=== PATIENT | male | born 1930 | race Caucasian/White ===

== ENCOUNTER → 2016-10-18 | Outpatient (CLI) | payer BC | LOC: CIMAGING 10:19 | PROVIDERS: ATTEND Internal Medicine | DX: M17.11 Unilateral primary osteoarthritis, right knee (principal) | CPT/HCPCS: 73564-PO ==

== ENCOUNTER 2017-04-05 10:04 | Emergency (ER) | payer OTHER ==
--- NOTE | 2017-04-05 10:51 | EDPHY ---
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 Patient had improved through rehab to the point that he was ambulating with a cane. He was speaking clearly and was able to perform meth medical consultations. He recently moved to [place] from the [place]. He is currently living with his son. Family says that they came home the morning of March 25 and found him in a decline state of health. He was sitting at the table with his underwear around his ankles eating breakfast. He was confused. He was weak and was unable to ambulate with his cane. Since that time he has had a little bit of improvement but continues to be quite weak. He is ambulating with a walker but has had 3 falls. The last 1 was 2 days ago where he fell and hit the side of the bath tub on his right posterior ribs. He has also had emotional lability and quite tearful. He is also having some urinary incontinence at night which is unusual for him. He has been complaining of some rib pain and pain with inspiration. They took him in to see Dr. Dean sent him here for further evaluation. ROS: 10 point Review of Systems is negative except as noted in the HPI. PMH: CVA, questionable atrial fibrillation, BPH PSH: Left hip replacement August 2015, hernia repair, cataract surgery Medications: Digoxin, Flomax, aspirin Social History: No smoking, no alcohol, no recreational drug use Family History: non-contributory Physical Exam: Gen: Awake, Alert, oriented x1, no distress, normotensive, normal heart rate, oxygen satting 95% on room air HEENT: Nose: no rhinorrhea Eyes: PERRLA, EOMI, he has got a mild right eyelid droop which is chronic Mouth: Moist mucosa Neck: Supple, no JVD Chest: He is contusion on his right lower posterior ribs with tenderness, decreased breath sounds on the right with some mild crackles Heart: S1, S2 normal, no murmur Abd: Soft, non-tender, no guarding Back: no CVA tenderness, no midline tenderness Ext: no edema, non-tender Skin: no rash Neuro: CN II-XII intact, Sensation grossly intact, Strength 5/5 in bilateral upper and lower extremities Constitutional: Initial Vital Signs Temperature (C) 36.6 C 04/05/17 11:00 Heart Rate 78 04/05/17 11:00 Respiratory Rate 18 04/05/17 11:00 Blood Pressure 135/60 H 04/05/17 11:00 O2 Sat (%) 97 04/05/17 11:00 O2 Delivery Mode Room Air Allergies/Adverse Reactions: No Known Allergies Allergy (Unverified 04/05/17 11:00) Medical Decision Making - Diagnostics Imaging Results: Imaging Impressions Chest X-Ray 04/05/17 10:43 Impression: Mild airways disease. No pneumothorax or rib fracture. Head CT 04/05/17 10:44 Impression: 1. Mild to moderate age-related atrophy. 2. No hemorrhage, mass effect, or definite acute peripheral infarct. 3. Mild to moderate nonspecific hypodensities in the white matter of bilateral cerebral hemispheres. Differential diagnosis includes microvascular ischemic disease, post-infectious/post-inflammatory sequela, atypical demyelinating disease, or migraine-related sequela. Small white matter lacunar infarcts are also seen left periventricular white matter. If symptoms worsen, additional imaging may be necessary. Findings discussed with Mike Vzaquez MD at 11:35 hour, 04/05/2017. ED Course/Re-evaluation: 87-year-old male with functional decline 11 days ago. He is ambulating with a walker. He is little bit more confused. He is having more falls. CBC is normal. Chemistries normal. CT scan of the head shows old infarcts but no acute changes. Chest x-ray is negative. ECG shows no acute changes. Urinalysis is negative for signs of infection. I have discussed with , Internal Medicine. He will follow up the patient within the next week or 2. Is family is already starting to look into home care services. I will contact case management in the hospital to see if they have any other resources available to them. Will also start the patient with an incentive spirometer cause of his chest wall pain. He will return for any concerns. - Data Points Laboratory Results: Laboratory Results 04/05/17 10:50 04/05/17 10:50 04/05/17 04/05/17 04/05/17 10:50 10:50 10:43 WBC 8.18 10^3/uL 10^3/uL (3.80-9.50) RBC 4.44 10^6/uL 10^6/uL (4.40-6.38) Hgb 13.4 g/dL L g/dL (13.7-17.5) Hct 39.8 % L % (40.0-51.0) MCV 89.6 fL fL (81.5-99.8) MCH 30.2 pg pg (27.9-34.1) MCHC 33.7 g/dL g/dL (32.4-36.7) RDW 14.6 % % (11.5-15.2) Plt Count 210 10^3/uL 10^3/uL (150-400) MPV 8.7 fL fL (8.7-11.7) Neut % (Auto) 60.7 % % (39.3-74.2) Lymph % (Auto) 25.7 % % (15.0-45.0) [place] % (Auto) 9.5 % % (4.5-13.0) Eos % (Auto) 3.2 % % (0.6-7.6) Baso % (Auto) 0.5 % % (0.3-1.7) Nucleat RBC Rel Count 0.0 % % (0.0-0.2) Absolute Neuts (auto) 4.97 10^3/uL 10^3/uL (1.70-6.50) Absolute Lymphs (auto) 2.10 10^3/uL 10^3/uL (1.00-3.00) Absolute Monos (auto) 0.78 10^3/uL 10^3/uL (0.30-0.80) Absolute Eos (auto) 0.26 10^3/uL 10^3/uL (0.03-0.40) Absolute Basos (auto) 0.04 10^3/uL 10^3/uL (0.02-0.10) Absolute Nucleated RBC 0.00 10^3/uL 10^3/uL (0-0.01) Immature Gran % 0.4 % % (0.0-1.1) Immature Gran # 0.03 10^3/uL 10^3/uL (0.00-0.10) RBC/WBC/PLT Morphology TNP Atypical Lymphocytes TNP Smudge Cells TNP Platelet Estimate TNP Sodium 141 mEq/L mEq/L (135-145) Potassium 4.3 mEq/L mEq/L (3.5-5.2) Chloride 101 mEq/L mEq/L (97-110) Carbon Dioxide 26 mEq/l mEq/l (22-31) Anion Gap 14 mEq/L mEq/L (8-16) BUN 16 mg/dL mg/dL (7-23) Creatinine 0.9 mg/dL mg/dL (0.7-1.3) Estimated GFR > 60 Glucose 77 mg/dL mg/dL (70-100) Calcium 8.7 mg/dL mg/dL (8.5-10.4) Total Bilirubin 0.2 mg/dL mg/dL (0.1-1.4) AST 16 IU/L L IU/L (17-59) ALT 23 IU/L IU/L (21-72) Alkaline Phosphatase 66 IU/L IU/L (38-126) Total Protein 6.6 g/dL g/dL (6.3-8.2) Albumin 3.5 g/dL g/dL (3.5-5.0) Urine Color YELLOW Urine Appearance CLEAR Urine pH 6.5 (5.0-7.5) Ur Specific [place] 1.020 (1.002-1.030) Urine Protein NEGATIVE (NEGATIVE) Urine Ketones NEGATIVE (NEGATIVE) Urine Blood NEGATIVE (NEGATIVE) Urine Nitrate NEGATIVE (NEGATIVE) Urine Bilirubin NEGATIVE (NEGATIVE) Urine Urobilinogen 0.2 EU EU (0.2-1.0) Ur Leukocyte Esterase NEGATIVE (NEGATIVE) Urine Glucose NEGATIVE (NEGATIVE) Departure - Departure Disposition: Home, Routine, Self-Care Clinical Impression: Declining functional status, Chest wall contusion Condition: Good Instructions: Weakness (ED), Chest Wall Pain (ED) Additional Instructions: Use the incentive spirometer breathing device every 15 min while awake. You may take acetaminophen, 1000 mg every 6 hr as needed for pain. Follow up with Dr. Warren in the next week for reassessment. Referrals: Ximena Warren MD [Primary Care Provider] - As per Instructions
[2017-04-05 11:04] VITALS: RESP 18; TEMP 98
[2017-04-05 11:12] LABS: PLATELET COUNT 210 10^3/uL (150-400)
--- NOTE | 2017-04-05 11:29 | CPEKG ---
Heart Rate: 55 RR Interval: 1091 P-R Interval: 188 QRSD Interval: 94 QT Interval: 414 QTC Interval: 396 P [place]: 18 QRS [place]: 15 T Wave [place]: 250 EKG Severity - ABNORMAL ECG - EKG Impression: SINUS RHYTHM EKG Impression: CONSIDER ANTEROSEPTAL INFARCT Electronically Signed By: Mike Vazquez 05-Apr-2017 15:00:13
[2017-04-05 11:49] VITALS: O2SAT 96
[2017-04-05 12:43] VITALS: PULSE 85
[2017-04-05 12:45] VITALS: BP 135/62
--- NOTE | 2017-04-06 11:53 | ASMTCMCOM ---
CM Note CM Note Notes: Follow up call to patient [place] [facility] [place], 04/05/17 (see ER report). This CM spoke with Arbam , francesca's daughter in law re potential HH care needs/referrals. We discussed medical vs non medical HH options and Abram decided that the family was primarily looking for caretakers to come in for several hours per day. Georgette from [facility] spoke with Abram as well to discuss medical/ medicare covered HH needs. Community resources provided, [facility] contact if/when family would like to pursue. Marta, case management coordinator at Dr. Warren's office is in contact with patient/family as well to assist with care needs Date Signed: 04/06/2017 11:52 AM Electronically Signed By:Carmela Clemens RN
== END 2017-04-05 12:43 | disposition home or self-care (01) ==
LOC: CED 10:04
DX: S20.211A Contusion of right front wall of thorax, initial encounter (principal); R41.81 Age-related cognitive decline; Z86.73 Personal history of transient ischemic attack (TIA), and cerebral infarction without residual deficits; W18.2XXA Fall in (into) shower or empty bathtub, initial encounter
CPT/HCPCS: 70450-PO; 71046-PO; 80053-PO; 81003-PO; 85025-PO